=== PATIENT | female | born 1975 | race Caucasian/White ===

== ENCOUNTER 2016-07-13 08:28 | Emergency (ER) | payer MEDICAID ==
[~2016-07-13] VITALS: Ht 160 cm; Wt 99.8 kg
[2016-07-13 08:38] VITALS: BP 153/106
[2016-07-13] MEDS ORDERED: BACITRACIN-POLYMYXIN B TOPICAL OINT UD TOP ONE (09:52)
[2016-07-13] MEDS ORDERED: NEOMYCIN-BACITRACIN-POLYM UNITDOSE PKG TOP OINT TOP ONE (10:00)
== END 2016-07-13 10:05 | disposition home or self-care (01) ==
LOC: ER 08:34
DX: L03.012 Cellulitis of left finger (principal); J20.9 Acute bronchitis, unspecified; F17.200 Nicotine dependence, unspecified, uncomplicated; J45.909 Unspecified asthma, uncomplicated; Z88.1 Allergy status to other antibiotic agents
CPT/HCPCS: 10060; 26010; 93005